=== PATIENT | female | born 1960 | race African-American/Black ===

== ENCOUNTER 2016-10-23 16:42 | Observation (INO) | payer MEDICARE, OTHER ==
--- NOTE | ~2016-10-23 | CN ---
Consultation Report [facility] [address] [place]. [address] NAME: ESTEVAN JIM : 62 STATUS : ADM Karen PAT#: [id number] AGE: 55 ADM/REG DATE : 10/23/16 MR#: [id number] REPORT SERV DATE: 10/26/16 DICTATED BY: DEYVI GOTTI DATE: 10/25/16 REPORT STATUS : Draft TRANSCRIBED BY: MODL DATE: 10/25/16 CONSULTATION DATE OF CONSULTATION: 10/25/2016 INDICATION: The patient with right upper quadrant pain. The patient is a 55-year-old female with a history irritable bowel syndrome, non-ulcer dyspepsia, has been treated with antispasmodic medication. Now presenting with severe pain in the right upper quadrant. The patient has a history of cholecystectomy. CT scan was performed which was unremarkable. Laboratory was unremarkable. PAST MEDICAL HISTORY: History of pituitary tumor, resolved with medication; chronic abdominal pain; reflux disease. PAST SURGICAL HISTORY: Cholecystectomy, foot and sinus surgery, breast reduction. MEDICATIONS: See MAR. PHYSICAL EXAMINATION: VITAL SIGNS: Temperature is 99.1, blood pressure 116/56, pulse 76. HEENT: Head is normocephalic, atraumatic. Throat is clear. LUNGS: Clear. HEART: S1, S2 without murmurs, gallops, rubs. ABDOMEN: Normoactive bowel sounds. Soft, nondistended. Mild epigastric tenderness to palpation. EXTREMITIES: Negative for cyanosis, clubbing, or edema. CT scan is unremarkable. IMPRESSION: The patient with epigastric right upper quadrant pain, etiology not clear, possibly an episode of intestinal spasm. Treat the patient with Protonix and Carafate. HP/MODL Deyvi Gotti M.D. / [id number] CC: MD Christian Cisneros II, D.O.
--- NOTE | ~2016-10-23 | DS ---
Discharge Summary [facility] [address] [place]. [address] NAME: ESTEVAN JIM : 62 STATUS : DIS Karen PAT#: [id number] AGE: 55 ADM/REG DATE : 10/23/16 MR#: [id number] REPORT SERV DATE: 10/27/16 DICTATED BY: BRODIE AYALA II DATE: 10/26/16 REPORT STATUS : Draft TRANSCRIBED BY: MODBalta DATE: 10/26/16 ADMISSION DATE: 10/23/2016 DISCHARGE DATE: 10/26/2016 DISCHARGE DIAGNOSES: 1. Right upper quadrant pain of uncertain etiology. 2. Chronic anemia. 3. Chronic pain with a history of chronic headaches, fibromyalgia, and possible lupus, on Plaquenil. 4. Hypertension. 5. Diabetes mellitus type 2. 6. Obesity. 7. Obstructive sleep apnea. 8. Chronic vertigo for which she is on disability. CONSULTS: Dr. Gotti with GI. BRIEF HISTORY OF PRESENT ILLNESS: The patient is a 55-year-old female with the above history, who presented to [facility] due to abdominal pain. For detailed history and physical examination, please see Dr. Inman's note from 10/23/2016. HOSPITAL COURSE: On admission, the patient had a CT scan which was negative for any acute pathology except for some fatty infiltration of the liver. Her hemoglobin was 11.6, A1c 6.5, labs fairly unremarkable. The patient, on day #2 of the onset, her pain was actually getting better with supportive care. Dr. Gotti was consulted and was uncertain as to the etiology of the patient's abdominal pain, possibly intestinal spasm, or given the patient's history, Dr. Inman brought up reasonable suspicion for possible conversion disorder. Her exam was fairly benign compared to her complaints and workup is unremarkable. She is on Plaquenil which can reportedly cause some abdominal pain, so we will hold this until she follows up in Dr. Gotti's clinic. She takes it for a reported history of lupus though has not had any evidence of lupus for quite some time and has been on Plaquenil for over a year. We will prescribe Bentyl and Carafate as per Dr. Gotti, and the patient can take tramadol p.r.n. for pain. At this point, she has reached the maximum benefit for hospitalization and will be discharged home. DISCHARGE MEDICATIONS: 1. Caltrate 600 mg p.o. b.i.d. 2. Cholecalciferol 2 tabs p.o. weekly. 3. Lisinopril 40 mg p.o. at bedtime. 4. Singular 1 tab p.o. at bedtime. 5. Fosamax 70 mg p.o. every 7 days. 6. Toprol 150 mg p.o. daily. 7. Zegerid 1 cap p.o. daily. 8. Carafate 1 g p.o. a.c. and at bedtime. 9. Clonidine 0.1 mg p.o. at bedtime. 10.Metformin 500 mg p.o. b.i.d. Discharge Summary [address] [address] NAME: ESTEVAN JIM : 62 STATUS : DIS Karen PAT#: [id number] AGE: 55 ADM/REG DATE : 10/23/16 MR#: [id number] REPORT SERV DATE: 10/27/16 DICTATED BY: BRODIE AYALA II DATE: 10/26/16 REPORT STATUS : Draft TRANSCRIBED BY: DELICIA DATE: 10/26/16 11.Linzess 145 mcg p.o. daily. 12.Zofran p.r.n. 13.Fioricet 1 tab p.o. q.6 hours p.r.n. 14.Ofloxacin ophthalmic twice a day x10 days, started 8 days prior to admission. 15.Antivert 25 mg p.o. t.i.d. and p.r.n. dizziness. 16.Maxzide 0.5 mg p.o. daily p.r.n. edema. 17.Ferrous sulfate 325 mg p.o. daily. 18.Tramadol 100 mg p.o. q.6 hours p.r.n. pain. 19.Bentyl 10 mg p.o. t.i.d. p.r.n. pain. DISCHARGE INSTRUCTIONS: The patient will follow with Dr. Gotti in one to two weeks. DINESH/DELICIA Brodie Ayala II, MD / [id number] CC: MD Christian Cisneros II, D.O.
--- NOTE | ~2016-10-23 | HP ---
History And Physical [place] [id number] [facility] [place]. [address] NAME: ESTEVAN JIM : 62 STATUS : ADM Karen PAT#: [id number] AGE: 55 ADM/REG DATE : 10/23/16 MR#: [id number] REPORT SERV DATE: 10/24/16 DICTATED BY: SANJAY INMAN DATE: 10/23/16 REPORT STATUS : Draft TRANSCRIBED BY: MODL DATE: 10/23/16 DATE OF ADMISSION: 10/23/2016 IDENTIFYING DATA: A 55-year-old female, whose PCP is Dr. Christian Rome. GI used to be Dr. Heaven Smith, currently is Dr. Gotti. It Trainer, Dr. Ovalle. CHIEF COMPLAINT: Abdominal pain. HISTORY OF PRESENT ILLNESS: This history of present illness is obtained by talking with the patient as well as the ER provider. There is multiple family members in the room, but they are not really providing any of the history. I also reviewed [employer]. The patient presented to the ER today at 1350 hours. I was called to see her at 1629 hours. The patient reportedly has been sobbing in pain since she has been here despite morphine, Zofran, and multiple doses of Dilaudid. The patient tells me that her pain started at 8 a.m. this morning, right upper quadrant, dull, heavy sensation, it is constant, radiates somewhat to the right shoulder, some nausea. No vomiting. No diarrhea. No fever. No rectal bleeding. No melena. She has a history of constipation, predominant irritable bowel syndrome for which she was on Linzess. She states since being started on metformin a few weeks ago for newly diagnosed diabetes, she was no longer needing the Linzess because her bowels are moving about three or four times a day. She states her last bowel movement was yesterday and was normal. She states she had peptic ulcers many years ago when Dr. Smith saw her and did an endoscopy. She states she had colon polyps many years ago, but she had a colonoscopy about four years ago with Dr. Gotti and reports it was normal. Through the whole time that I am with her, she is sobbing, although she is able to hold fairly normal conversation. She keeps kind of gulping for air with this sobbing. Review of the [facility] reveals multiple ER visits over the years for abdominal pain, chest pain, rectal pain. She has past history of headaches, fibromyalgia, back pain, arthritis pain. REVIEW OF SYSTEMS: She states she has allergies. She has occasional vertigo and she states she is on disability for vertigo. She has an occasional rash that is not present currently. She has some headaches, maybe once or twice a month. She has gained may be four pounds in the last year. She states she fell on some steps and hurt her left knee and left elbow on back about a month ago, when she was trying to help keep a child from falling. She denies sore throat, chest pain, shortness of breath, dysuria, urinary hesitancy, peripheral edema. ALLERGIES: SHE HAS STATED ALLERGY TO PENICILLIN, SULFA, CODEINE, HYDROCODONE, AND ADHESIVE TAPE. PAST MEDICAL HISTORY: She denies any history of heart disease, stroke, seizure, chronic kidney disease, thyroid disease, cancer. She has had a history of TMJ. She had a previous pituitary tumor that she states resolved with medication. She has the above described chronic pain. She has had reflux and Dr. History And Physical [address] [address] NAME: ESTEVAN JIM : 62 STATUS : ADM Karen PAT#: [id number] AGE: 55 ADM/REG DATE : 10/23/16 MR#: [id number] REPORT SERV DATE: 10/24/16 DICTATED BY: SANJAY INMAN DATE: 10/23/16 REPORT STATUS : Draft TRANSCRIBED BY: DELICIA DATE: 10/23/16 Luis worked a lot with her on that in the past and did pH and motility studies. She has a history of allergic rhinitis and questionable prior asthma, but she states they told her it was not asthma. She has hypertension. She was recently diagnosed with diabetes. She has a chronic microcytic anemia. She is overweight. She states she has obstructive sleep apnea, but is not using CPAP. HOME MEDICATIONS: Fosamax 70 mg weekly, Fioricet tablet every six hours p.r.n. headache, Caltrate 600 mg b.i.d., vitamin D she takes two of the 10,000 unit capsules every week, Catapres 0.1 mg at bedtime, ferrous sulfate 325 mg b.i.d., Plaquenil 200 mg b.i.d., lisinopril 40 mg at bedtime, Antivert 25 mg t.i.d. p.r.n. dizziness, metformin 500 mg b.i.d., Toprol-XL 150 mg daily, Singulair 10 mg at bedtime, Ocuflox 10 drops twice a day started eight days ago, Zegerid 40 mg daily, Zofran 4 mg one or two b.i.d. for nausea, Maxzide 25 half tablet daily p.r.n. peripheral edema. SURGICAL HISTORY: She has had right plantar fascia surgery, cholecystectomy, sinus surgery, breast reduction, benign right ovarian cyst removal. SOCIAL HISTORY: She denies tobacco or alcohol intake history. She states she is unemployed. She is on disability because of vertigo. She walks without any assistive device. FAMILY HISTORY: She reports mother with diabetes and heart disease. When I asked about health problems for her dad, she never really said anything. Siblings reportedly with diabetes and hypertension based on past medical history. LABORATORIES AND IMAGING: CT scan of the abdomen and pelvis done today and read by the radiologist, it was done without contrast shows fatty liver and otherwise, no remarkable findings. Sodium 144, potassium 3.8, chloride 108, CO2 is 28, BUN 18, creatinine 1.15, glucose 101, calcium 9.5. The CMP is otherwise completely normal. Lipase 159, troponin less than 0.02, white count is 9.2, hemoglobin 11.6, MCV is 69.4, platelets are 259,000. RDW is 16.7. Urinalysis today, specific gravity 1.008, trace leukocyte esterase, occasional bacteria. PHYSICAL EXAMINATION: VITAL SIGNS: Temperature 98.7; pulse 100; respirations 19; blood pressure initially 222/107, currently 168/92; O2 saturation 100% on room air. GENERAL: Well-developed female, who is sobbing the moment I walk in the room and continued through the entire time, but was remarkably able to hold a conversation with me. HEENT: Head is atraumatic. Pupils are equal, round, and reactive to light. Extraocular motions are intact. No scleral icterus noted. Ear canals and TMs unremarkable. No inflammatory changes noted of the ears externally. Nose, noninflamed externally. Septum midline. Nares patent. Mouth, moist. Good gag. No redness of the throat, gums, or lips. NECK: Supple. No lymph node or thyroid enlargement. The carotids have good pulses. No bruits. LUNGS: Clear. Good air flow. No wheezes. No rhonchi. Normal respiratory effort. HEART: Regular rate and rhythm without murmur, gallop, click, or rub. ABDOMEN: Obese, bowel sounds positive, soft, nondistended, tenderness that is difficult to reproduce in the right upper quadrant. It was there some of the time when I palpated. History And Physical [address] [place]. [address] NAME: ESTEVAN JIM : 62 STATUS : ADM Karen PAT#: [id number] AGE: 55 ADM/REG DATE : 10/23/16 MR#: [id number] REPORT SERV DATE: 10/24/16 DICTATED BY: SANJAY INMAN DATE: 10/23/16 REPORT STATUS : Draft TRANSCRIBED BY: DELICIA DATE: 10/23/16 Other times, I did not seem to get any reaction at all. Negative Strickland sign. No mass. No organomegaly. No bruits noted. EXTREMITIES: Warm, good pulses. No clubbing, no cyanosis, no edema. No actively inflamed skin or joints. NEUROLOGIC: She is alert. She is oriented. Her motor strength is 3/5 in all four extremities. No Babinski. No clonus noted. Cranial nerves II through XII grossly normal. ASSESSMENT: 1. Right upper quadrant pain. Reported radiate to the right shoulder with negative lab workup and negative CT abdomen and pelvis. Differential diagnosis:. a. Irritable bowel syndrome with spasm. b. Conversion disorder. c. Right lung pain referred. d. Medication side effect, such as from her Plaquenil. 2. Ongoing uncontrolled sobbing and crying throughout the entire time I am here and the other thing that concern me is that there are four family members in the room present while I am there, but they seem to be primarily interacting with each other during the time I was doing the history and physical and not giving any overt emotional support to her during this time. This to me makes me concerned about some anxiety and depression for this patient. 3. Chronic microcytic anemia that could represent iron-deficiency or could be thalassemia. 4. Chronic pain with a history of headaches, joint pains, back pain, fibromyalgia, possible lupus. 5. Hypertension. 6. History of previous pituitary tumor. 7. History of reflux. 8. History of chronic allergic rhinitis. 9. Recent diagnosis of diabetes mellitus type 2. 10.Chronic vertigo for which she is on disability. 11.History of obstructive sleep apnea, but not compliant with CPAP. PLAN: 1. Observation status on telemetry. 2. Consultation to her GI group. 3. We are going to check EKG and a D-dimer. If the D-dimer is elevated, we will get a CT of the chest. Troponin #1 has been checked and is normal. We will check a followup troponin. We will request her PCPs notes. We will get some iron studies. We will at this point in time try to use nonnarcotic pain medicines because I am concerned it may be more of an irritable bowel spasm and triggered by emotional stresses and the narcotics given in the ER do not seem to be helping it anyway. We will also try to use some benzodiazepines for what appears to be some anxiety and we will request last few office notes from her PCP. RSLuis Alberto/DELICIA History And Physical [address] [address] NAME: ESTEVAN JIM : 62 STATUS : ADM Karen PAT#: [id number] AGE: 55 ADM/REG DATE : 10/23/16 MR#: [id number] REPORT SERV DATE: 10/24/16 DICTATED BY: SANJAY INMAN DATE: 10/23/16 REPORT STATUS : Draft TRANSCRIBED BY: MODBalta DATE: 10/23/16 Sanjay Inman M.D. / [id number] CC: Shawn Pereira Jr, MD Donald Hartsfield, D.O. Henry Paik, M.D. Art Ovalle MD
[2016-10-23 14:49] LABS: BASOPHILS 0.4 %; BASOPHILS ABSOLUTE 0.04 10/3/uL (0.0-0.16); EOSINOPHILS 2.2 %; ER CBC TAT 0 Hrs 07 Mins; HEMATOCRIT 36.9 % (36.0-48.0); HEMOGLOBIN 11.6 g/dL (12.0-16.0); IMMATURE GRANULOCYTES 0.1 %; IMMATURE GRANULOCYTES ABSOLUTE 0.01 10/3/uL (0.0-0.11); LYMPHOCYTES 22.3 %; LYMPHOCYTES ABSOLUTE 2.05 10/3/uL (0.67-4.30); MEAN CORPUS HGB CONC 31.4 g/dL (32.0-36.0); MEAN CORPUSCULAR HEMOGLOB 21.8 pg (26.0-34.0); MEAN CORPUSCULAR VOLUME 69.4 fL (80-100); MONOCYTES ABSOLUTE 0.83 10/3/uL (0.21-1.20); NEUTROPHILS ABSOLUTE 6.08 10/3/uL (2.02-8.40); RED CELL COUNT 5.32 10/6/uL (4.0-5.6); WHITE BLOOD CELLS 9.2 10/3/uL (4.5-10.5)
[2016-10-23 14:51] LABS: MANUAL DIFF NO %; PLATELET COUNT 259 10/3/uL (150-400); RBC DISTRIBUTION WIDTH 16.7 % (12.0-16.0)
[2016-10-23 14:55] LABS: ASCORBIC ACID (UR NOT ORDER) NEG (NEG); BILIRUBIN, URINE NEGATIVE (NEG); ER URINALYSIS TAT 0 Hrs 13 Mins; KETONE, URINE NEGATIVE (NEG); LEUKOCYTE ESTERASE(NOT OR TRACE (NEG); NITRITE (URINE) NEG (NEG); WBC (NOT ORDERED) (RFLEX) 4 (0-5)
[2016-10-23 15:05] LABS: A/G RATIO 1.3 (0.7-1.9); ALBUMIN 4.3 G/DL (3.5-5.0); ALKALINE PHOSPHATASE 72 U/L (45-117); BUN (BLOOD UREA NITROGEN) 18 MG/DL (6-23); CALCIUM, SERUM 9.5 MG/DL (8.5-10.4); CHLORIDE, SERUM 108 MMOL/L (96-112); CO2 (CARBON DIOXIDE) 28 MMOL/L (24-34); CREATININE 1.15 MG/DL (0.55-1.02); GFR AFRICAN AMERICAN 62 ML/MIN (>=60); GFR NON AFRICAN AMERICAN 54 ML/MIN (>=60); GLOBULIN 3.4 G/DL (2.5-4.1); POTASSIUM, SERUM 3.8 MMOL/L (3.5-5.3); SGOT(AST) 18 U/L (5-40); SGPT(ALT) 31 U/L (5-65); SODIUM, SERUM 144 MMOL/L (135-148); TOTAL BILIRUBIN 0.4 MG/DL (0-1.2); TOTAL PROTEIN 7.7 G/DL (6.0-8.5)
[2016-10-23 15:06] LABS: GLUCOSE, SERUM 101 MG/DL (60-99)
[2016-10-23 15:26] LABS: ER DIFF TAT 0 Hrs 44 Mins; LYMPHOCYTES 19 %; LYMPHOCYTES ABSOLUTE (CALC) 1.75 10/3/uL (0.67-4.30); MONOCYTES 13 %; NEUTROPHILS ABSOLUTE (CALC) 6.26 10/3/uL (2.02-8.40); SEGMENTED NEUTROPHIL (0) 68 %; TOTAL NUCLEATED CELLS 100
[2016-10-23 15:27] LABS: OVALOCYTES 3+ (>30/OIF) (0-2/OIF); PLATELET ESTIMATE ADQ (ADEQUATE); SCHISTOCYTES OCC (0-2/OIF)
[2016-10-23 15:28] LABS: HYPOCHROMIA 1+ (3-10/OIF) (0-2/OIF)
[2016-10-23] MEDS ORDERED: LINZESS 145 M145 MCG PO (16:48)
[2016-10-23] MEDS ORDERED: ZOFRAN4 PO (16:48)
[2016-10-23] MEDS ORDERED: PLAQ200B PO (16:49)
[2016-10-23] MEDS ORDERED: FIORICET 50-301 EACH PO (16:49)
[2016-10-23] MEDS ORDERED: LISINOPRIL40 MG PO (16:49)
[2016-10-23] MEDS ORDERED: ZEGERID1 CA1 PO (16:50)
[2016-10-23] MEDS ORDERED: MAXIMUM D3 PO (16:50)
[2016-10-23] MEDS ORDERED: FOSAMAX70 MG PO (16:50)
[2016-10-23] MEDS ORDERED: TOPXL100 PO (16:51)
[2016-10-23] MEDS ORDERED: FORTAMET500 MG PO (16:52)
[2016-10-23] MEDS ORDERED: OCUFLOX OT (16:52)
[2016-10-23] MEDS ORDERED: MCZ25 PO (16:53)
[2016-10-23] MEDS ORDERED: CAT1 PO (16:53)
[2016-10-23] MEDS ORDERED: MCZ25 (16:53)
[2016-10-23] MEDS ORDERED: SINGULAIR1 PO (16:54)
[2016-10-23] MEDS ORDERED: CALTRAT600 PO (16:55)
[2016-10-23] MEDS ORDERED: MAX25 PO (16:55)
[2016-10-23] MEDS ORDERED: FERROUS SULF325 M1 PO (16:55)
[2016-10-23 17:01] LABS: TROPONIN I <0.02 NG/ML (<0.05)
[2016-10-23 21:44] LABS: TROPONIN I <0.02 NG/ML (<0.05)
[2016-10-24 02:43] LABS: BASOPHILS 0.5 %; BASOPHILS ABSOLUTE 0.04 10/3/uL (0.0-0.16); EOSINOPHILS 2.2 %; EOSINOPHILS ABSOLUTE 0.17 10/3/uL (0.0-0.53); HEMATOCRIT 35.5 % (36.0-48.0); HEMOGLOBIN 11.3 g/dL (12.0-16.0); IMMATURE GRANULOCYTES 0.1 %; IMMATURE GRANULOCYTES ABSOLUTE 0.01 10/3/uL (0.0-0.11); LYMPHOCYTES 27.1 %; LYMPHOCYTES ABSOLUTE 2.08 10/3/uL (0.67-4.30); MANUAL DIFF NO %; MEAN CORPUS HGB CONC 31.8 g/dL (32.0-36.0); MEAN CORPUSCULAR HEMOGLOB 22.2 pg (26.0-34.0); MEAN CORPUSCULAR VOLUME 69.9 fL (80-100); MONOCYTES 10.8 %; MONOCYTES ABSOLUTE 0.83 10/3/uL (0.21-1.20); NEUTROPHILS 59.3 %; NEUTROPHILS ABSOLUTE 4.55 10/3/uL (2.02-8.40); PLATELET COUNT 225 10/3/uL (150-400); RBC DISTRIBUTION WIDTH 16.5 % (12.0-16.0); RED CELL COUNT 5.08 10/6/uL (4.0-5.6); WHITE BLOOD CELLS 7.7 10/3/uL (4.5-10.5)
[2016-10-24 03:00] LABS: A/G RATIO 1.1 (0.7-1.9); ALBUMIN 3.6 G/DL (3.5-5.0); BUN (BLOOD UREA NITROGEN) 16 MG/DL (6-23); CALCIUM, SERUM 8.6 MG/DL (8.5-10.4); CHLORIDE, SERUM 110 MMOL/L (96-112); CO2 (CARBON DIOXIDE) 29 MMOL/L (24-34); CREATININE 1.09 MG/DL (0.55-1.02); GFR AFRICAN AMERICAN 67 ML/MIN (>=60); GFR NON AFRICAN AMERICAN 58 ML/MIN (>=60); GLOBULIN 3.2 G/DL (2.5-4.1); POTASSIUM, SERUM 3.8 MMOL/L (3.5-5.3); SGOT(AST) 18 U/L (5-40); SGPT(ALT) 28 U/L (5-65); SODIUM, SERUM 148 MMOL/L (135-148); TOTAL BILIRUBIN 0.4 MG/DL (0-1.2); TOTAL PROTEIN 6.8 G/DL (6.0-8.5)
[2016-10-24 03:02] LABS: ALKALINE PHOSPHATASE 54 U/L (45-117); GLUCOSE, SERUM 143 MG/DL (60-99)
[2016-10-24 03:03] LABS: PLATELET ESTIMATE ADQ (ADEQUATE); RBC MORPHOLOGY ABN (NORMAL)
[2016-10-25 03:52] LABS: BASOPHILS 0.4 %; BASOPHILS ABSOLUTE 0.02 10/3/uL (0.0-0.16); EOSINOPHILS 2.2 %; HEMATOCRIT 33.3 % (36.0-48.0); HEMOGLOBIN 10.4 g/dL (12.0-16.0); LYMPHOCYTES 28.8 %; LYMPHOCYTES ABSOLUTE 1.33 10/3/uL (0.67-4.30); MEAN CORPUS HGB CONC 31.2 g/dL (32.0-36.0); MEAN CORPUSCULAR HEMOGLOB 21.9 pg (26.0-34.0); MEAN CORPUSCULAR VOLUME 70.3 fL (80-100); MONOCYTES 11.9 %; MONOCYTES ABSOLUTE 0.55 10/3/uL (0.21-1.20); NEUTROPHILS 56.7 %; NEUTROPHILS ABSOLUTE 2.62 10/3/uL (2.02-8.40); PLATELET COUNT 171 10/3/uL (150-400); RBC DISTRIBUTION WIDTH 16.3 % (12.0-16.0); RED CELL COUNT 4.74 10/6/uL (4.0-5.6)
[2016-10-25 03:53] LABS: MANUAL DIFF NO %; WHITE BLOOD CELLS 4.6 10/3/uL (4.5-10.5)
[2016-10-25 04:05] LABS: CALCIUM, SERUM 8.7 MG/DL (8.5-10.4); CHLORIDE, SERUM 107 MMOL/L (96-112); CO2 (CARBON DIOXIDE) 31 MMOL/L (24-34); CREATININE 1.08 MG/DL (0.55-1.02); GFR AFRICAN AMERICAN 67 ML/MIN (>=60); GFR NON AFRICAN AMERICAN 58 ML/MIN (>=60); GLUCOSE, SERUM 123 MG/DL (60-99); POTASSIUM, SERUM 3.8 MMOL/L (3.5-5.3); SODIUM, SERUM 142 MMOL/L (135-148)
[2016-10-25 04:09] LABS: BUN (BLOOD UREA NITROGEN) 11 MG/DL (6-23)
[2016-10-25 04:14] LABS: ELLIPTOCYTES 3+ (>30/OIF) (0-2/OIF); PLATELET ESTIMATE ADQ (ADEQUATE)
[2016-10-25 04:15] LABS: HELMET CELLS OCC (0-2/OIF)
[2016-10-26] MEDS ORDERED: SUCR PO (16:09)
[2016-10-26] MEDS ORDERED: ULTRAM50 PO (16:10)
[2016-10-26] MEDS ORDERED: BENTYL10 PO (16:32)
== END 2016-10-26 16:33 | disposition home or self-care (01) ==
LOC: ER 16:42 → CDU1 17:26
PROVIDERS: Hospitalist; Internal Medicine; Nurse Practitioner Family
DX: R10.11 Right upper quadrant pain (principal); D64.9 Anemia, unspecified; Z88.0 Allergy status to penicillin; Z88.2 Allergy status to sulfonamides; Z88.5 Allergy status to narcotic agent; Z88.8 Allergy status to other drugs, medicaments and biological substances; Z79.899 Other long term (current) drug therapy; Z90.49 Acquired absence of other specified parts of digestive tract; Z98.890 Other specified postprocedural states; I10 Essential (primary) hypertension; K21.9 Gastro-esophageal reflux disease without esophagitis; E11.9 Type 2 diabetes mellitus without complications; G47.33 Obstructive sleep apnea (adult) (pediatric); E66.9 Obesity, unspecified; R42 Dizziness and giddiness
CPT/HCPCS: 71010; 74176; 80048; 80053; 81001; 82962; 83036; 83690; 84443; 84484; 85025; 85379; 93005; 93970; 96372; 96374; 96375; 96376; 99285; A9270-GY; G0378; J1170; J2405